=== PATIENT | male | born 1975 | race Caucasian/White ===

== ENCOUNTER 2022-07-08 05:49 | Emergency (ER) | payer OTHER, MEDICAID ==
[~2022-07-08] VITALS: Ht 172.7 cm; Wt 95.5 kg
[~2022-07-08 05:49] MED LIST: NO HOME MEDS
[2022-07-08 07:14] LABS: BASOPHILS % (AUTO) 0.5 % (0-1); EOSINOPHILS # (AUTO) 0.3 X10'3 (0-0.9); EOSINOPHILS % (AUTO) 3.6 % (0-6); LYMPHOCYTES # (AUTO) 2.5 X10'3 (1.1-4.8); LYMPHOCYTES % (AUTO) 34.2 % (21-51); MONOCYTES # (AUTO) 0.5 X10'3 (0-0.9); MONOCYTES % (AUTO) 6.1 % (2-12); NEUTROPHILS # (AUTO) 4.1 X10'3 (1.8-7.7); NEUTROPHILS % (AUTO) 55.6 % (42-75)
[2022-07-08 07:28] LABS: D-DIMER 0.38 MG/L FEU (0-0.50)
[2022-07-08 07:32] LABS: ALANINE AMINOTRANSFERASE 76 U/L (12-78); ALBUMIN 4.2 G/DL (3.4-5.0); ALKALINE PHOSPHATASE 62 IU/L (46-116); ANION GAP 12 (8-16); ASPARTATE AMINO TRANSFERASE 34 U/L (10-37); BILIRUBIN,TOTAL 0.4 MG/DL (0.1-1.0); BLOOD UREA NITROGEN 17 MG/DL (7-18); BUN/CREATININE RATIO 15.7 (5.4-32.0); CALCIUM 9.6 MG/DL (8.5-10.1); CHLORIDE 100 MMOL/L (99-107); CREATININE 1.08 MG/DL (0.60-1.10); GLUCOSE 134 MG/DL (70-104); POTASSIUM 4.1 MMOL/L (3.5-5.1); RED BLOOD COUNT 5.62 X10'6 (4.70-6.10); SODIUM 138 MMOL/L (135-145); TOTAL CARBON DIOXIDE 26.4 MMOL/L (24-32); TOTAL PROTEIN 8.5 G/DL (6.4-8.2); WHITE BLOOD COUNT 7.7 X10'3 (4.5-11.0); eGFR 74 ML/MIN
[2022-07-08 07:33] LABS: MEAN CORPUSCULAR HEMOGLOBIN 32.9 PG (27.0-31.0); MEAN CORPUSCULAR HGB CONC 33.6 g/dL (33.0-36.5); MEAN PLATELET VOLUME 8.1 FL (7.4-10.4); PLATELET COUNT 237 X10'3 (140-440); RED CELL DISTRIBUTION WIDTH 13.1 % (11.5-14.5)
[2022-07-08 07:35] LABS: HEMOGLOBIN 18.5 g/dl (14.0-17.9)
[2022-07-08 07:41] LABS: MAGNESIUM 2.2 MG/DL (1.5-2.4)
[2022-07-08 08:00] LABS: LIPASE 200 U/L (73-393)
[2022-07-08 09:34] VITALS: BP 126/74
== END 2022-07-08 09:37 | disposition home or self-care (01) ==
LOC: EEVIPCON 05:50 → ER 05:50
DX: R07.89 Other chest pain (principal); G43.909 Migraine, unspecified, not intractable, without status migrainosus; G89.29 Other chronic pain; F17.200 Nicotine dependence, unspecified, uncomplicated; Z72.89 Other problems related to lifestyle
CPT/HCPCS: 36415; 71045; 80053; 83690; 83735; 83880; 84484; 85025; 85379; 93005; 99285

== ENCOUNTER 2023-11-21 08:37 | Outpatient (CLI) | payer OTHER, MEDICAID | END 2023-11-21 23:59 | disposition home or self-care (01) | LOC: RAD 08:37 | PROVIDERS: ATTEND Student in an Organized Health Care Education/Training Program | DX: R94.01 Abnormal electroencephalogram [EEG] (principal); R25.9 Unspecified abnormal involuntary movements | CPT/HCPCS: 95819 ==

== ENCOUNTER 2024-02-17 05:36 | Day surgery (SDC) | payer OTHER, MEDICAID ==
[2024-02-11 11:27] LABS: BASOPHILS % (AUTO) 0.4 % (0-1); EOSINOPHILS # (AUTO) 0.1 X10'3 (0-0.9); EOSINOPHILS % (AUTO) 1.6 % (0-6); LYMPHOCYTES # (AUTO) 2.9 X10'3 (1.1-4.8); LYMPHOCYTES % (AUTO) 45.1 % (21-51); MEAN CORPUSCULAR HEMOGLOBIN 31.8 PG (27.0-31.0); MEAN CORPUSCULAR HGB CONC 34.1 g/dL (33.0-36.5); MEAN CORPUSCULAR VOLUME 93.3 FL (78-98); MEAN PLATELET VOLUME 8.1 FL (7.4-10.4); MONOCYTES # (AUTO) 0.6 X10'3 (0-0.9); MONOCYTES % (AUTO) 8.6 % (2-12); NEUTROPHILS # (AUTO) 2.9 X10'3 (1.8-7.7); NEUTROPHILS % (AUTO) 44.3 % (42-75); PRE OP HEMATOCRIT 43.2 % (42.0-52.0); PRE OP HEMOGLOBIN 14.7 g/dL (14.0-17.9); PRE OP PLATELET COUNT 219 X10'3 (140-440); PRE OP WHITE BLOOD COUNT 6.5 10'3 (4.8-10.8); RED BLOOD COUNT 4.63 X10'6 (4.70-6.10); RED CELL DISTRIBUTION WIDTH 13.2 % (11.5-14.5)
[2024-02-11 12:13] LABS: ALBUMIN 4.2 G/DL (3.4-5.0); ALBUMIN/GLOBULIN RATIO 1.2 (1.1-1.5); ALKALINE PHOSPHATASE 42 IU/L (46-116); BLOOD UREA NITROGEN 17 MG/DL (7-18); BUN/CREATININE RATIO 14.9 (10.0-20.0); CALCIUM 9.1 MG/DL (8.5-10.1); CHLORIDE 103 MMOL/L (99-107); CREATININE 1.14 MG/DL (0.60-1.10); PRE OP ALT 28 U/L (30-65); PRE OP ANION GAP 8 (8-16); PRE OP AST 18 U/L (10-37); PRE OP BILIRUB, TOTAL 0.7 MG/DL (0.0-1.0); PRE OP GLUCOSE 104 MG/DL (70-104); PRE OP POTASSIUM 3.7 MMOL/L (3.4-5.1); PRE OP SODIUM 137 MMOL/L (135-145); TOTAL CARBON DIOXIDE 25.7 MMOL/L (24-32); TOTAL PROTEIN 7.7 G/DL (6.4-8.2); eGFR 69 ML/MIN
[~2024-02-17] VITALS: Ht 172.7 cm; Wt 71.4 kg
[2024-02-17] VITALS (8 sets, daily range): BP systolic 95–106; BP diastolic 54–63; PULSE 45–65; RESP 9–16; TEMP 98.2; O2SAT 95–99
[~2024-02-17 05:36] MED LIST changes: +ATOR20TA PO; +BUPR150T8 PO; +LISI10TA27 PO; +PANT-47 PO; +TOPI-95 PO
[2024-02-17] MEDS: famotidine 20mg tablet PO ONE (06:26)
[2024-02-17] MEDS: ringers solution, lacted 1,000 ML IV SCH (06:26)
[2024-02-17] MEDS: cefazolin 2gm/D5W 100mL 100 ML IV ONE (06:29)
[2024-02-17] MEDS ORDERED: MIDAZolam 1 MG/ML 5ML VIAL ONE (07:37)
[2024-02-17] MEDS ORDERED: fentaNYL/PF 50MCG/1 ML 2ML syringe ONE (07:37)
[2024-02-17] MEDS ORDERED: propofol inj 20 ML IV ONE (07:56)
[2024-02-17] MEDS ORDERED: LIDOcaine 2% (20mg/ml) 5ml vial ONE (07:56)
[2024-02-17] MEDS: BUPIVAcaine/PF 2.5mg/ml (0.25%) 10ml vial ONE (12:01)
[2024-02-17] MEDS: LIDOcaine 1% (10mg/ml)w/preservative inj. 20ml MDV ONE (12:01)
== END 2024-02-17 09:20 | disposition home or self-care (01) ==
LOC: PAS 05:36
PROVIDERS: ATTEND Orthopaedic Surgery Hand Surgery
DX: G56.02 Carpal tunnel syndrome, left upper limb (principal); I10 Essential (primary) hypertension; K21.9 Gastro-esophageal reflux disease without esophagitis; F41.9 Anxiety disorder, unspecified; F32.A Depression, unspecified; I20.9 Angina pectoris, unspecified; Z79.891 Long term (current) use of opiate analgesic; Z79.899 Other long term (current) drug therapy; Z98.890 Other specified postprocedural states; Z88.1 Allergy status to other antibiotic agents
CPT/HCPCS: 29848; 36415; 80053; 82948; 85025; 93005; J0690; J2250; J2704; J3010; J3490; J7030; J7120; Z7506; Z7512; A4215; A6449; A7000

== ENCOUNTER 2024-04-18 15:27 | Emergency (ER) | payer MEDICAID, OTHER ==
[~2024-04-18] VITALS: Ht 172.7 cm; Wt 69.0 kg
[~2024-04-18 15:27] MED LIST changes: -NO HOME MEDS
[2024-04-18 17:05] VITALS: BP 126/89; PULSE 72; RESP 17; TEMP 97.9; O2SAT 96
== END 2024-04-18 17:06 | disposition home or self-care (01) ==
LOC: ER 15:28
DX: S00.83XA Contusion of other part of head, initial encounter (principal); G89.29 Other chronic pain; M54.9 Dorsalgia, unspecified; Z88.2 Allergy status to sulfonamides; Z88.8 Allergy status to other drugs, medicaments and biological substances; Z79.899 Other long term (current) drug therapy; Z72.89 Other problems related to lifestyle; W50.0XXA Accidental hit or strike by another person, initial encounter; Y93.89 Activity, other specified; Y92.89 Other specified places as the place of occurrence of the external cause; Y99.8 Other external cause status
CPT/HCPCS: 99281

== ENCOUNTER 2024-11-23 10:06 | Emergency (ER) | payer OTHER ==
[~2024-11-23] VITALS: Ht 172.7 cm; Wt 65.9 kg
[2024-11-23 10:14] VITALS: BP 141/77; PULSE 63; TEMP 97.8; O2SAT 100
[2024-11-23] MEDS: LIDOcaine 5% patch TP STA (11:34)
[2024-11-23 11:35] VITALS: RESP 16
[2024-11-23] MEDS: ketorolac trometh 15mg/ml vial 15 MG/ML ML IM ONE (11:35)
[2024-11-23] MEDS ORDERED: BACL10TA2 PO (12:52)
[2024-11-25] MEDS ORDERED: IBUP-2697 PO (08:51)
[2024-11-25] MEDS ORDERED: BACL10TA2 PO (08:51)
== END 2024-11-23 12:59 | disposition home or self-care (01) ==
LOC: ER 10:07
DX: M54.2 Cervicalgia (principal); G89.29 Other chronic pain; M54.9 Dorsalgia, unspecified; G43.909 Migraine, unspecified, not intractable, without status migrainosus; F17.210 Nicotine dependence, cigarettes, uncomplicated; Z72.89 Other problems related to lifestyle; Z88.2 Allergy status to sulfonamides; Z88.8 Allergy status to other drugs, medicaments and biological substances; Z79.899 Other long term (current) drug therapy
CPT/HCPCS: 72125; 96372; 99285; J1885

== ENCOUNTER 2024-11-30 05:41 | Day surgery (SDC) | payer OTHER ==
[~2024-11-30] VITALS: Ht 170.2 cm; Wt 67.6 kg
[2024-11-30] VITALS (8 sets, daily range): BP systolic 92–120; BP diastolic 56–72; PULSE 47–59; RESP 10–16; TEMP 97.6; O2SAT 97–100
[~2024-11-30 05:41] MED LIST changes: +BACL10TA2 PO; +IBUP-2697 PO
[2024-11-30] MEDS: ringers solution, lacted 1,000 ML IV SCH (06:19)
[2024-11-30] MEDS: famotidine 20mg tablet PO ONE (06:19)
[2024-11-30] MEDS: ceFAZolin 2gm in dextrose, iso 50 ML IV ONE (06:20)
[2024-11-30] MEDS ORDERED: triamcinolone acetonide 40mg/ml inj ONE (06:33)
[2024-11-30] MEDS ORDERED: LIDOcaine 1% 30ml preserv. free vial ONE (06:33)
[2024-11-30] MEDS ORDERED: BUPIVAcaine 2.5mg/ml inj 50ml vial (contains preservative) ONE (06:34)
[2024-11-30 06:46] LABS: BASOPHILS # (AUTO) 0.1 X10'3 (0-0.2); BASOPHILS % (AUTO) 0.8 % (0-1); EOSINOPHILS # (AUTO) 0.2 X10'3 (0-0.9); EOSINOPHILS % (AUTO) 2.4 % (0-6); LYMPHOCYTES # (AUTO) 2.9 X10'3 (1.1-4.8); LYMPHOCYTES % (AUTO) 40.5 % (21-51); MEAN CORPUSCULAR HEMOGLOBIN 31.6 PG (27.0-31.0); MEAN CORPUSCULAR HGB CONC 33.2 g/dL (33.0-36.5); MEAN CORPUSCULAR VOLUME 95.1 FL (78-98); MEAN PLATELET VOLUME 8.5 FL (7.4-10.4); MONOCYTES # (AUTO) 0.6 X10'3 (0-0.9); MONOCYTES % (AUTO) 7.9 % (2-12); NEUTROPHILS # (AUTO) 3.5 X10'3 (1.8-7.7); NEUTROPHILS % (AUTO) 48.4 % (42-75); PRE OP HEMATOCRIT 44.8 % (42.0-52.0); PRE OP HEMOGLOBIN 14.8 g/dL (14.0-17.9); PRE OP PLATELET COUNT 192 X10'3 (140-440); PRE OP WHITE BLOOD COUNT 7.2 10'3 (4.8-10.8); RED BLOOD COUNT 4.71 X10'6 (4.70-6.10); RED CELL DISTRIBUTION WIDTH 12.7 % (11.5-14.5)
[2024-11-30] MEDS ORDERED: cloNIDine hcl/PF 100mcg/ml inj ONE (07:20)
[2024-11-30 07:22] LABS: ALANINE AMINOTRANSFERASE 29 U/L (12-78); ALBUMIN/GLOBULIN RATIO 1.1 (1.1-1.5); ALKALINE PHOSPHATASE 53 IU/L (46-116); ANION GAP 7 (8-16); ASPARTATE AMINO TRANSFERASE 17 U/L (10-37); BILIRUBIN,TOTAL 0.3 MG/DL (0.1-1.0); BLOOD UREA NITROGEN 16 MG/DL (7-18); BUN/CREATININE RATIO 16.5 (10.0-20.0); CALCIUM 8.8 MG/DL (8.5-10.1); CHLORIDE 107 MMOL/L (99-107); CREATININE 0.97 MG/DL (0.60-1.10); GLUCOSE 99 MG/DL (70-104); POTASSIUM 3.7 MMOL/L (3.5-5.1); SODIUM 141 MMOL/L (135-145); TOTAL CARBON DIOXIDE 26.7 MMOL/L (24-32); TOTAL PROTEIN 7.5 G/DL (6.4-8.2); eCRCL 88 ML/MIN; eGFR 83 ML/MIN
[2024-11-30] MEDS ORDERED: sevoflurane 250ml liquid IH ONE (07:22)
[2024-11-30] MEDS ORDERED: midazolam 1 mg/ML 2ml injection ONE (07:23)
[2024-11-30] MEDS ORDERED: ondansetron/PF 4mg/2ml inj IV PRN (07:25)
[2024-11-30] MEDS ORDERED: ringers solution, lacted 1,000 ML IV SCH (07:25)
[2024-11-30] MEDS ORDERED: HYDROmorphone/PF 0.2 MG/ML SYRINGE IV PRN ×2 (07:25)
[2024-11-30] MEDS ORDERED: proCHLORperazine 10 MG/2 ml inj IV PRN (07:25)
[2024-11-30] MEDS ORDERED: labetalol 20mg/4ml (5mg/ml) syringe IV PRN (07:25)
[2024-11-30] MEDS ORDERED: morphine 2 MG/ML inj. syringe IV PRN (07:25)
[2024-11-30] MEDS ORDERED: hydrALAZINE 20mg/ml inj. IV PRN (07:25)
[2024-11-30] MEDS ORDERED: morphine 4 MG/ML inj SYRINge IV PRN (07:25)
[2024-11-30] MEDS ORDERED: acetaminophen 1,000mg/100ml IV 100 ML IV PRN (07:25)
[2024-11-30] MEDS ORDERED: propofol inj 20 ML IV ONE (07:40)
[2024-11-30] MEDS ORDERED: dexamethasone sod phosphate 4mg/ml inj. ONE ×2 (07:40→07:46)
[2024-11-30] MEDS ORDERED: LIDOcaine 1%/PF 5ML 10 MG/ML VIAL ONE (07:40)
[2024-11-30] MEDS ORDERED: LIDOcaine 2% (20mg/ml) 5ml vial ONE (07:40)
[2024-11-30] MEDS ORDERED: ROPIVAcaine 0.5% (5mg/ml) 30ml vial ONE (07:40)
[2024-11-30] MEDS ORDERED: ondansetron/PF 4mg/2ml inj ONE (07:46)
[2024-11-30] MEDS: HYDROcodone/acetaminophen 10/325mg tab PO PRN (09:17)
== END 2024-11-30 09:16 | disposition home or self-care (01) ==
LOC: PAS 05:41
PROVIDERS: ATTEND Orthopaedic Surgery
DX: M75.01 Adhesive capsulitis of right shoulder (principal); M19.011 Primary osteoarthritis, right shoulder; I10 Essential (primary) hypertension; F32.A Depression, unspecified; M17.0 Bilateral primary osteoarthritis of knee; G89.18 Other acute postprocedural pain; F41.9 Anxiety disorder, unspecified; K21.9 Gastro-esophageal reflux disease without esophagitis; Z79.899 Other long term (current) drug therapy; Z98.890 Other specified postprocedural states; Z88.8 Allergy status to other drugs, medicaments and biological substances; Z88.2 Allergy status to sulfonamides; Z72.89 Other problems related to lifestyle; Z87.891 Personal history of nicotine dependence
CPT/HCPCS: 23700; 36415; 64415; 80053; 82948; 85025; 93005; J0690; J0735; J1100; J2003; J2250; J2405; J2704; J2795; J3301; J3490; J7120; Z7506; Z7512; A4215; A4565; A4618

== ENCOUNTER 2025-03-19 04:04 | Emergency (ER) | payer OTHER ==
[~2025-03-19] VITALS: Ht 172.7 cm; Wt 67.8 kg
[2025-03-19 04:07] VITALS: TEMP 97.3
--- NOTE | 2025-03-19 04:11 | ELECTROCARDIOGRAPH REPORT ---
[facility] Test Date: 2025-03-19 Test Time: 04:09:23 Pat Name: MIRNA GODINEZ Department: [facility]-ER Patient ID: [id number] Room: Gender: M Intensive Care Unit Nurse: : [id number] Requested By: NANDO HORTA Order Number: [id number] Reading MD: Measurements Intervals [place] Rate: 69 P: 87 VT: 179 QRS: 88 QRSD: 86 T: 139 QT: 408 QTc: 437 Interpretive Statements Sinus rhythm Probable lateral infarct, age indeterminate Please click the below link to view image of tracing.
--- NOTE | 2025-03-19 04:23 | Physician Documentation ---
History of Present Illness ~ Chief Complaint: Chest Pain Stated Complaint: CHEST PAIN Time Seen by MD: 04:22 Primary Medical Doctor: TESS BENNETT Patient presents to the emergency room for evaluation of left arm paresthesias and chest discomfort described as burning in nature. No prior instances. Patient does take antacids daily. Patient does have a history of carpal tunnel that has well has been nods. States he is trying to go to sleep in his arm started acting up initially and ended up here because he could not sleep and symptoms persisted. He denies one-sided leg pain. He does have history of high blood pressure and cholesterol but denies history of diabetes and he does not smoke. Positive family history of heart disease. Medication Reconciliation Allergies: Coded Allergies: Sulfa (Sulfonamide Antibiotics) (Unverified Allergy, Unknown, HIVES, 03/19/25) gabapentin (Unverified Allergy, Unknown, FORGETFULNESS, 03/19/25) meperidine (Unverified Allergy, Unknown, DONT GIVE IT TO ME; KNOCKED OUT FOR A WEEK, 03/19/25) lorazepam (Verified Adverse Reaction, Severe, angry, 03/19/25) pt states this medication makes him very angry amitriptyline (Unverified Adverse Reaction, Unknown, FEELS GROGGY, 03/09 10/03) hydroxyzine (Unverified Adverse Reaction, Unknown, BODY TWITCH, 03/19/25) oxcarbazepine (Unverified Adverse Reaction, Unknown, EXTREME GROGGINESS, 03/19/25) Scheduled Atorvastatin Calcium* (Lipitor*), 1 TABLET PO DAILY, (Reported) Bupropion Hcl SR* (Wellbutrin SR*), 1 TAB PO DAILY, (Reported) Lisinopril (Lisinopril), 10 MG PO DAILY, (Reported) Pantoprazole Sodium (PROTONIX tablet), 40 MG PO BID, (Reported) Topiramate (Topiramate), 1 TAB PO BID, (Reported) Scheduled PRN Baclofen (Baclofen), 1 TAB PO Q8H PRN for pain, (Reported) Ibuprofen (Ibuprofen), 2 TAB PO Q8H PRN for pain, (Reported) Past Medical History Past Medical History: Migraine, *CARDIOVASCULAR*, Chronic Back Pain Past Surgical History: no surgical history Alcohol Use: Occasionally Drug Use: none Lives In: Home Occupation: employed Review of Systems ROS All review of systems negative except as per HPI Physical Exam Vital Signs: Temperature: 97.3, Source: Oral, Heart Rate: 67, Respiratory Rate: 16, BP: 140/72, Pulse Oximetry: 100, Weight: 67.800 Oxygen Flow Rate: 0 Physical Exam General: Patient is awake, alert, oriented x4 in no acute distress Head: Normocephalic and atraumatic. Eyes: Conjunctival normal. EOMI. PERRL. ENT: Mucous membranes moist. Neck: Supple, trachea is midline. Chest: Clear to auscultation bilaterally without rales, rhonchi, or wheezes. There is no accessory muscle use or retractions. Cardiac: RRR without murmurs, gallops, or rubs. Abd: Soft, nondistended, nontender, with normoactive bowel sounds. No guarding, rebound, or rigidity. Extremities: Normal strength. Normal range of motion. No deformities or edema. No calf tenderness to palpation Progress Results/Orders Results/Orders Orders - TONY JENSEN MD Chest,Single View (03/19/25 04:19) Monitor (03/19/25 04:19) Saline Lock (03/19/25 04:19) Oxygen (03/19/25 04:19) Hs Troponin I W Calculations (03/19/25 06:19) Hs Troponin I W Calculations (03/19/25 07:19) Completed Orders - TONY JENSEN MD Electrocardiogram (03/19/25 04:05) Cbc/Diff (03/19/25 04:19) BMP (03/19/25 04:19) PBNP (03/19/25 04:19) Hs Troponin I W Calculations (03/19/25 04:19) Mag & Alum Hydrox/Simeth Susp (Maalox Or (03/19/25 04:40) Lidocaine 2% Viscous (Xylocaine 2% Visco (03/19/25 04:40) Medications Received in ER Medications (Trade) Dose Ordered Sig/Tristin Route PRN Reason Start Time Stop Time Status Last Admin Dose Admin (Maalox oral suspension) 30 ml ONCE ONCE PO 03/19/25 04:40 03/19/25 04:41 DC 03/19/25 04:44 30 ML (Xylocaine 2% Viscous 15mL cup) 15 ml ONCE ONCE MM 03/19/25 04:40 03/19/25 04:41 DC 03/19/25 04:44 15 ML Vital Signs 03/19/25 03/19/25 04:07 04:25 Temp 97.3 Pulse 67 Resp 16 16 B/P (MAP) 140/72 Pulse Ox 100 O2 Flow Rate 0 Laboratory Tests Test 03/19/25 04:20 White Blood Count 7.4 Red Blood Count 4.78 Hemoglobin 15.0 Hematocrit 44.5 Mean Corpuscular Volume 93.1 Mean Corpuscular Hemoglobin 31.4 H Mean Corpuscular Hemoglobin Concent 33.7 Red Cell Distribution Width 13.0 Platelet Count 218 Mean Platelet Volume 8.6 Neutrophils (%) (Auto) 44.7 Lymphocytes (%) (Auto) 45.5 Monocytes (%) (Auto) 6.7 Eosinophils (%) (Auto) 2.0 Basophils (%) (Auto) 1.1 H Neutrophils # (Auto) 3.3 Lymphocytes # (Auto) 3.4 Monocytes # (Auto) 0.5 Eosinophils # (Auto) 0.1 Basophils # (Auto) 0.1 CBC Comment Sodium Level 141 Potassium Level 3.3 L Chloride Level 106 Carbon Dioxide Level 26.4 Anion Gap 9 Blood Urea Nitrogen 21 H Creatinine 1.20 H Estimated GFR/1.73 m2 65 BUN/Creatinine Ratio 17.5 Glucose Level 100 Calcium Level 8.7 Troponin I High Sensitivity 4 Pro-B-Type Natriuretic Peptide 43 Albumin 4.3 Chemistry Comments EKG/XRAY/CT/US/VASC/MRI EKG : Additional Comment EKG interpreted by myself shows time of 0409, rate 69, sinus rhythm, normal axis, no ST changes Medical Decision Making Findings Patient presented to the emergency room with chest discomfort along with left arm paresthesia. Given patient's history of Raynaud's as well as carpal tunnel I suspect that he may be suffering from some peripheral nerve irritation. He also endorses significant history of neck traumas previously. I do not feel his paresthesia in his left upper extremity is related to stroke or cardiac etiology. Patient has burning pain in his chest did improve but did not completely resolve with GI cocktail. Patient has a reassuring heart score of three. The need to follow up with his doctor discussed. Patient's pain is atypical. I have considered both aortic pathology as well as pulmonary embolism in addition to ACS however given overall HPI physical exam workup performed he had not believe this is the case. Departure Disposition: HOME / SELF CARE / HOMELESS Impression: Primary Impression: Chest pain Condition: Stable Discharge Instructions: Nonspecific Chest Pain, Adult Referrals: NO PRIMARY CARE PROVIDER (PCP) Signature Scribe Signature: No scribe Attestation: The note accurately reflects work and decisions made by me.Tony Jensen MD 03/19/25 05:33 TONY JENSEN MD Mar 19, 2025 04:23
[2025-03-19 04:31] LABS: MEAN PLATELET VOLUME 8.6 FL (7.4-10.4); RED CELL DISTRIBUTION WIDTH 13.0 % (11.5-14.5)
[2025-03-19] MEDS: mag hydrox/Alum hydrox/simeth 30ml oral suspension PO ONE (04:44)
[2025-03-19] MEDS: LIDOcaine 2% Viscous 15ml cup MM ONE (04:44)
[2025-03-19 04:52] LABS: CREATININE 1.20 MG/DL (0.60-1.10); PRO BRAIN NATRIURETIC PEPTIDE 43 PG/ML (0-125); TOTAL CARBON DIOXIDE 26.4 MMOL/L (24-32); eCRCL 73 ML/MIN; eGFR 65 ML/MIN
[2025-03-19 05:36] VITALS: BP 124/81; PULSE 55; RESP 16; O2SAT 100
== END 2025-03-19 05:43 | disposition home or self-care (01) ==
LOC: ER 04:05
DX: R07.89 Other chest pain (principal); R20.2 Paresthesia of skin; R06.02 Shortness of breath
CPT/HCPCS: 36415; 80048; 83880; 84484; 85025; 93005; 99284